=== PATIENT | male | born 1940 | race Caucasian/White ===

== ENCOUNTER 2017-06-03 13:11 | Outpatient (RCR) | payer MEDICARE, BC, SELFPAY | END 2017-08-12 10:14 | disposition home or self-care (01) | LOC: PT 13:11 | DX: J43.2 Centrilobular emphysema (principal) | CPT/HCPCS: G0424 ==

== ENCOUNTER 2020-10-17 14:52 | Outpatient (RCR) | payer MEDICARE, BC, SELFPAY | END 2021-03-07 10:35 | disposition home or self-care (01) | LOC: PT 14:52 | PROVIDERS: Visit Provider Family Medicine | DX: J44.9 Chronic obstructive pulmonary disease, unspecified (principal) | CPT/HCPCS: G0424 ==